=== PATIENT | female | born 1955 | race Caucasian/White ===

== ENCOUNTER → 2017-09-29 | Outpatient (CLI) | payer OTHER | LOC: RAD 12:49 | DX: M41.85 Other forms of scoliosis, thoracolumbar region (principal) ==

== ENCOUNTER → 2020-01-28 | Outpatient (CLI) | payer OTHER | LOC: LAB 09:55 | PROVIDERS: ATTEND Family Medicine | DX: R51 Headache (principal); M79.10 Myalgia, unspecified site; R19.7 Diarrhea, unspecified; Z20.828 Contact with and (suspected) exposure to other viral communicable diseases ==

== ENCOUNTER → 2020-12-19 | Outpatient (CLI) | payer OTHER | LOC: CAT 08:16 | PROVIDERS: ATTEND Family Medicine | DX: Z13.6 Encounter for screening for cardiovascular disorders (principal); I25.10 Atherosclerotic heart disease of native coronary artery without angina pectoris; E78.00 Pure hypercholesterolemia, unspecified ==